=== PATIENT | female | born 1935 | race Caucasian/White ===

== ENCOUNTER 2017-05-11 16:49 | Observation (INO) | payer MEDICARE ==
[~2017-05-11] VITALS: Ht 154.9 cm; Wt 86.5 kg
[~2017-05-11 16:49] MED LIST: LEVO.1 PO; OXYBXL10 PO; PRED10 PO
[2017-05-11] MEDS ORDERED: SODIUM CHLOR 0.9% 1000 ML INJ 1,000 ML IV SCH (17:09)
[2017-05-11 17:14] VITALS: BP 180/82; PULSE 82; RESP 17; TEMP 97.6; O2SAT 91
[2017-05-11] MEDS ORDERED: ONDANSETRON HCL 4 MG/2 ML VIAL IVP ONE (17:15)
[2017-05-11] MEDS ORDERED: SODIUM CHLORIDE 0.9% FLUSH 10 ML FLUSH IV FLUSH PRN ×2 (17:15→20:15)
[2017-05-11 17:17] VITALS: BP 180/82; PULSE 72; RESP 19; O2SAT 88; O2SAT 89
[2017-05-11] MEDS ORDERED: PRED1 PO (17:26)
[2017-05-11] MEDS ORDERED: LEVO.1 PO (17:26)
[2017-05-11] MEDS ORDERED: OXYB5TAB8 PO (17:26)
[2017-05-11] MEDS ORDERED: SODI1TAB PO (17:26)
[2017-05-11] MEDS ORDERED: CYAN100025 PO (17:27)
--- NOTE | 2017-05-11 17:31 | PD ---
HPI Chief Complaint: Chest Pain Time Seen by Provider: 17:07 Travel History International Travel<30 days: No Contact w/Intl Traveler<30days: No Traveled to known affect area: No History of Present Illness HPI The patient is 82 years old and complains of chest pain and vomiting after eating dinner in a restaurant. Location is retrosternal. She denies loss of consciousness. Lightheadedness did occur. Onset sudden. Symptoms have more or less resolved over trace persistent retrosternal. The patient reports feeling herself over the past few days. There have been no new or different medications. Bowel and bladder habits have been normal. The patient believes she may have eaten food too quickly and potentially leading to the nausea vomiting and chest pain. [facility] Past Medical History Cancer: No Diabetes: No Glaucoma: No Hepatitis: No Hiatal Hernia: No Hypertension: Yes (YEARS AGO) Thyroid Disease: Yes Past Surgical History Ear Surgery: Yes (BILAT MASTOIDECTOMY) Oral Surgery: Yes (TONSILS) Social History Alcohol Use: Yes (RARE) Tobacco Use: No Allergies-Medications (Allergen,Severity, Reaction): Coded Allergies: Sulfa (Sulfonamide Antibiotics) (Unverified Allergy, Severe, 05/11/17) Reported Meds & Prescriptions Reported Meds & Active Scripts Active Reported B-12 (Cyanocobalamin) 1,000 Mcg Subl 1,000 Mcg PO DAILY Prednisone 1 Mg Tab 2 Mg PO HS Sodium Chloride 1 Gram Tab 1 Gm PO DAILY Ditropan (Oxybutynin Chloride) 5 Mg Tab 10 Mg PO DAILY Synthroid (Levothyroxine Sodium) 100 Mcg Tab 100 Mcg PO DAILY Review of Systems Except as stated in HPI: all other systems reviewed are Neg Physical Exam Narrative GENERAL: The patient is 82 years old male distress present SKIN: Warm and dry. HEAD: Atraumatic. Normocephalic. EYES: Pupils equal and round. No scleral icterus. No injection or drainage. ENT: No nasal bleeding or discharge. Mucous membranes pink and moist. NECK: Trachea midline. No JVD. CARDIOVASCULAR: Rhythm is somewhat irregular. The rate about 90. RESPIRATORY: No accessory muscle use. Clear to auscultation. Breath sounds equal bilaterally. GASTROINTESTINAL: Abdomen soft, non-tender, nondistended. Hepatic and splenic margins not palpable. MUSCULOSKELETAL: Extremities without clubbing, cyanosis, or edema. No obvious deformities. NEUROLOGICAL: Awake and alert. No obvious cranial nerve deficits. Motor grossly within normal limits. Five out of 5 muscle strength in the arms and legs. Normal speech. PSYCHIATRIC: Appropriate mood and affect; insight and judgment normal. Data Data Last Documented VS Vital Signs Date Time Temp Pulse Resp B/P (MAP) Pulse Ox O2 Delivery O2 Flow Rate FiO2 05/11/17 18:15 68 20 175/83 (113) 98 Nasal Cannula 3.00 05/11/17 17:14 97.6 Orders Orders Complete Blood Count With Diff (05/11/17 17:09) Comprehensive Metabolic Panel (05/11/17 17:09) Lipase (05/11/17 17:09) Prothrombin Time / Inr (Pt) (05/11/17 17:09) Act Partial Throm Time (Ptt) (05/11/17 17:09) Urinalysis - C+S If Indicated (05/11/17 17:09) Iv Access Insert/Monitor (05/11/17 17:09) Ecg Monitoring (05/11/17 17:09) Oximetry (05/11/17 17:09) Ondansetron Inj (Zofran Inj) (05/11/17 17:15) Sodium Chlor 0.9% 1000 Ml Inj (Ns 1000 M (05/11/17 17:09) Sodium Chloride 0.9% Flush (Ns Flush) (05/11/17 17:15) Electrocardiogram (05/11/17 17:09) Troponin I (05/11/17 17:09) Chest, Single Ap (05/11/17 ) Labs Laboratory Tests Test 05/11/17 17:30 05/11/17 18:10 White Blood Count 10.0 TH/MM3 Red Blood Count 4.50 MIL/MM3 Hemoglobin 13.2 GM/DL Hematocrit 39.2 % Mean Corpuscular Volume 87.1 FL Mean Corpuscular Hemoglobin 29.4 PG Mean Corpuscular Hemoglobin Concent 33.8 % Red Cell Distribution Width 14.9 % Platelet Count 176 TH/MM3 Mean Platelet Volume 8.7 FL Neutrophils (%) (Auto) 70.0 % Lymphocytes (%) (Auto) 20.4 % Monocytes (%) (Auto) 7.3 % Eosinophils (%) (Auto) 1.6 % Basophils (%) (Auto) 0.7 % Neutrophils # (Auto) 7.0 TH/MM3 Lymphocytes # (Auto) 2.0 TH/MM3 Monocytes # (Auto) 0.7 TH/MM3 Eosinophils # (Auto) 0.2 TH/MM3 Basophils # (Auto) 0.1 TH/MM3 CBC Comment DIFF FINAL Differential Comment Prothrombin Time 10.7 SEC Prothromb Time International Ratio 1.1 RATIO Activated Partial Thromboplast Time 21.7 SEC Blood Urea Nitrogen 10 MG/DL Creatinine 0.76 MG/DL Random Glucose 142 MG/DL Total Protein 6.2 GM/DL Albumin 3.2 GM/DL Calcium Level 8.0 MG/DL Alkaline Phosphatase 54 U/L Aspartate Amino Transf (AST/SGOT) 15 U/L Alanine Aminotransferase (ALT/SGPT) 16 U/L Total Bilirubin 0.6 MG/DL Sodium Level 143 MEQ/L Potassium Level 3.2 MEQ/L Chloride Level 110 MEQ/L Carbon Dioxide Level 24.5 MEQ/L Anion Gap 9 MEQ/L Estimat Glomerular Filtration Rate 73 ML/MIN Troponin I LESS THAN 0.02 NG/ML Lipase 86 U/L Urine Color YELLOW Urine Turbidity HAZY Urine pH 7.0 Urine Specific [place] 1.012 Urine Protein NEG mg/dL Urine Glucose (UA) TRACE mg/dL Urine Ketones 10 mg/dL Urine Occult Blood NEG Urine Nitrite NEG Urine Bilirubin NEG Urine Urobilinogen LESS THAN 2.0 MG/DL Urine Leukocyte Esterase TRACE Urine RBC 1 /hpf Urine WBC 2 /hpf Urine Squamous Epithelial Cells 2 /hpf Urine Amorphous Sediment RARE Urine Bacteria RARE /hpf Microscopic Urinalysis Comment CULT NOT INDICATED MDM Medical Decision Making Medical Screen Exam Complete: Yes Emergency Medical Condition: Yes Medical Record Reviewed: Yes Differential Diagnosis Arrhythmia, coronary artery disease, UTI Narrative Course CBC & BMP Diagram 05/11/17 17:30 Total Protein 6.2 L, Albumin 3.2 L, Calcium Level 8.0 L, Alkaline Phosphatase 54 , Aspartate Amino Transf (AST/SGOT) 15, Alanine Aminotransferase (ALT/SGPT) 16, Total Bilirubin 0.6 Past medical history includes hypertension. The workup reveals a normal CBC essentially unremarkable chemistries including a negative troponin. The urinalysis shows no UTI in the coags are normal. The patient has an EKG with frequent PVCs however the morphology overall appears essentially stable. The patient at after reassessment attempted to ambulate around upon however became dizzy and was assisted back to bed. Admission for monitoring is considered appropriate given the age and the concern for arrhythmia associated with today's events. Patient received Zofran IV fluids and reported feeling somewhat better. Diagnosis Primary Impression: Nausea & vomiting Additional Impression: Chest pain Bo Camacho MD May 11, 2017 17:31
[2017-05-11 17:56] LABS: BASOPHIL # 0.1 TH/MM3 (0-0.2); BASOPHIL % 0.7 % (0.0-2.0); EOSINOPHIL # 0.2 TH/MM3 (0-0.4); EOSINOPHIL % 1.6 % (0.0-4.0); HEMATOCRIT 39.2 % (35.0-46.0); HEMOGLOBIN 13.2 GM/DL (11.6-15.3); LYMPH % 20.4 % (9.0-44.0); MEAN CELL VOLUME 87.1 FL (80.0-100.0); MEAN CORPUSCULAR HEMOGLOBIN 29.4 PG (27.0-34.0); MEAN CORPUSCULAR HGB CONC 33.8 % (32.0-36.0); MEAN PLATELET VOLUME 8.7 FL (7.0-11.0); MONO % 7.3 % (0.0-8.0); MONOCYTE # 0.7 TH/MM3 (0-0.9); PLATELET COUNT 176 TH/MM3 (150-450); RED CELL DISTRIBUTION WIDTH 14.9 % (11.6-17.2)
[2017-05-11 18:00] VITALS: BP 181/82; PULSE 72; RESP 17; O2SAT 97
--- NOTE | 2017-05-11 18:03 | RADRPT ---
EXAM DATE/TIME: 05/11/2017 17:41 [place] COMPARISON: No previous studies available for comparison. INDICATIONS : Syncopal episode. MEDICAL HISTORY : Hypertension. SURGICAL HISTORY : None. ENCOUNTER: Initial ACUITY: 1 day PAIN SCORE: Non-responsive. LOCATION: Bilateral chest FINDINGS: Lung volumes are symmetrically diminished. There is mild vascular congestion and interstitial promine nce. No evidence of lobar consolidation or significant effusion. Heart size appears grossly normal. T here are arthritic changes in the spine and left shoulder. CONCLUSION: Mild diffuse interstitial prominence. Armani Sorensen MD on May 11, 2017 at 17:59 Board Certified Radiologist. This report was verified electronically.
[2017-05-11 18:08] LABS: INTERNATIONAL NORMALIZED RATIO 1.1 RATIO; PROTHROMBIN TIME - PATIENT 10.7 SEC (9.8-11.6)
[2017-05-11 18:15] VITALS: BP 175/83; PULSE 68; RESP 20; O2SAT 98
[2017-05-11 18:15] LABS: ALBUMIN 3.2 GM/DL (3.4-5.0); AST (GOT) 15 U/L (15-37); BICARBONATE 24.5 MEQ/L (21.0-32.0); BLOOD UREA NITROGEN 10 MG/DL (7-18); CHLORIDE 110 MEQ/L (98-107); CREATININE 0.76 MG/DL (0.50-1.00); GLOMERULAR FILTRATION RATE 73 ML/MIN (>89); GLUCOSE,RANDOM 142 MG/DL (74-106); LIPASE 86 U/L (73-393); SODIUM (NA) 143 MEQ/L (136-145)
[2017-05-11 18:19] LABS: ALKALINE PHOSPHATASE 54 U/L (45-117); ALT (GPT) 16 U/L (10-53); TOTAL BILIRUBIN ADULT 0.6 MG/DL (0.2-1.0); TOTAL PROTEIN 6.2 GM/DL (6.4-8.2); TROPONIN I LESS THAN 0.02 NG/ML (0.02-0.05)
[2017-05-11 18:26] LABS: AMORPHOUS SEDIMENT, URINE RARE; BACTERIA, URINE RARE /hpf; BILIRUBIN, URINE NEG (NEG); BLOOD, URINE NEG (NEG); GLUCOSE,URINE TRACE mg/dL (NEG); KETONE, URINE 10 mg/dL (NEG); NITRITE,URINE NEG (NEG); SQUAMOUS EPITHELIAL CELL URINE 2 /hpf (0-5); URINE COLOR YELLOW (YELLW/STRAW); URINE LEUKOCYTE ESTERASE TRACE (NEG)
--- NOTE | 2017-05-11 19:36 | EKG ---
Date Performed: 05/11/2017 Time Performed: 17:14:11 PTAGE: 82 years EKG: Sinus rhythm WITH OCCASIONAL SUPRAVENTRICULAR PREMATURE COMPLEXES MARKED LEFT AXIS DEVIATION PATTERN CONSISTENT W ITH PULMONARY DISEASE NONSPECIFIC ST & T-WAVE ABNORMALITY ABNORMAL ECG Compared to prior electrocardi ogram, Premature atrial contraction are now present PREVIOUS TRACING : 03/18/2009 12.45 DOCTOR: Chacho Hood Interpretating Date/Time 05/11/2017 19:34:52
[2017-05-11] MEDS ORDERED: NALOXONE HCL 0.4 MG/ML AMP IV PUSH PRN (20:15)
[2017-05-11 20:37] VITALS: BP 133/66; PULSE 72; RESP 17; TEMP 97.6; O2SAT 96
[2017-05-11] MEDS ORDERED: FAMOTIDINE 20 MG TAB PO ONE (21:45)
[2017-05-11] MEDS: SODIUM CHLORIDE 0.9% FLUSH 10 ML FLUSH IV FLUSH SCH (22:26)
[2017-05-11 22:35] VITALS: PULSE 74
[2017-05-11 23:56] LABS: TROPONIN I LESS THAN 0.02 NG/ML (0.02-0.05)
[2017-05-12] VITALS (8 sets, daily range): BP systolic 138–187; BP diastolic 74–84; PULSE 66–93; RESP 16–18; TEMP 97.7–98.3; O2SAT 94–96
--- NOTE | 2017-05-12 03:06 | HHI.HP ---
HPI Service [facility] Primary Care Physician Unknown Admission Diagnosis N/V, Chest Pain Diagnoses: Travel History International Travel<30 Days: No Contact w/Intl Traveler <30 Da: No Traveled to Known Affected Are: No History of Present Illness hx from patient, ER physician was at [employer] eating celeberating birthday all of a sudden felt somehting odd told sister she felt funny and sister asked her if she wants to go to er , adn called 911 then she vomited while waiting for them she vomited severeal times before she got to er no black or red color "more or less the same it went down, the way it came up"--- meaning all food no abdominal pain was still a little nauseous, got medicine, felt better was supposed to be discharged, but got unsteady on ambulation and er doc advised to stay denies every single symptoms denies chest pains to me- but then stated she had a little when she was vomiting Review of Systems Except as stated in HPI: all other systems reviewed are Neg Past Family Social History Past Medical History white coat syndrome had prior syncopal episode- was seen by Dr Valiente then- all negative cardiac workup, and was started on salt pills salt pills now, only once a day, used to be on 4 x aday hypothyroidism at 14yo polio Arthritis Past Surgical History 14 months old, mastoidectomy bilateral tonsilectomy tendon at back of leg removed- for polio- at 14yo 1982- 3/4 of thyroidectomy and goiter cholecystectomy Allergies: Coded Allergies: Sulfa (Sulfonamide Antibiotics) (Unverified Allergy, Severe, 05/11/17) Family History sister- cancer, at base of spine another sister- part of lung removed from cancer Social History used to smoke during teenager no etoh, no drugs lives on her own now , no longer driving Physical Exam Vital Signs Vital Signs Date Time Temp Pulse Resp B/P (MAP) Pulse Ox O2 Delivery O2 Flow Rate FiO2 05/12/17 00:19 97.7 70 17 181/79 (113) 95 05/11/17 20:37 97.6 72 17 133/66 (88) 96 1/18/18 18:15 68 20 175/83 (113) 98 Nasal Cannula 3.00 05/11/17 18:00 72 17 181/82 (115) 97 Nasal Cannula 3.00 05/11/17 17:17 88 Room Air 05/11/17 17:17 72 19 180/82 (114) 89 Nasal Cannula 2.00 05/11/17 17:17 80 05/11/17 17:14 97.6 82 17 180/82 (114) 91 Physical Exam GENERAL: This is a well-nourished, well-developed patient, in no apparent distress. SKIN: No rashes, ecchymoses or lesions. Cool and dry. HEAD: Atraumatic. Normocephalic. No temporal or scalp tenderness. EYES: No scleral icterus. No injection or drainage. ENT: Nose without bleeding, purulent drainage or septal hematoma. Airway patent. NECK: Trachea midline. No JVD . Supple, nontender, no meningeal signs. CARDIOVASCULAR: Regular rate and rhythm without murmurs, gallops, or rubs. RESPIRATORY: Clear to auscultation. Breath sounds equal bilaterally. No wheezes , rales, or rhonchi. GASTROINTESTINAL: Abdomen soft, non-tender, nondistended. . No guarding. MUSCULOSKELETAL: Extremities without clubbing, cyanosis, or edema. No calf tenderness. bilateral wrist with mild soft tissue swelling- from prior falls/ bruising NEUROLOGICAL: Awake and alert. Motor and sensory grossly within normal limits. Normal speech. Laboratory Laboratory Tests Test 05/11/17 17:30 05/11/17 18:10 05/11/17 23:15 White Blood Count 10.0 Red Blood Count 4.50 Hemoglobin 13.2 Hematocrit 39.2 Mean Corpuscular Volume 87.1 Mean Corpuscular Hemoglobin 29.4 Mean Corpuscular Hemoglobin Concent 33.8 Red Cell Distribution Width 14.9 Platelet Count 176 Mean Platelet Volume 8.7 Neutrophils (%) (Auto) 70.0 Lymphocytes (%) (Auto) 20.4 Monocytes (%) (Auto) 7.3 Eosinophils (%) (Auto) 1.6 Basophils (%) (Auto) 0.7 Neutrophils # (Auto) 7.0 Lymphocytes # (Auto) 2.0 Monocytes # (Auto) 0.7 Eosinophils # (Auto) 0.2 Basophils # (Auto) 0.1 CBC Comment DIFF FINAL Differential Comment Prothrombin Time 10.7 Prothromb Time International Ratio 1.1 Activated Partial Thromboplast Time 21.7 Blood Urea Nitrogen 10 Creatinine 0.76 Random Glucose 142 Total Protein 6.2 Albumin 3.2 Calcium Level 8.0 Alkaline Phosphatase 54 Aspartate Amino Transf (AST/SGOT) 15 Alanine Aminotransferase (ALT/SGPT) 16 Total Bilirubin 0.6 Sodium Level 143 Potassium Level 3.2 Chloride Level 110 Carbon Dioxide Level 24.5 Anion Gap 9 Estimat Glomerular Filtration Rate 73 Troponin I LESS THAN 0.02 LESS THAN 0.02 Lipase 86 Urine Color YELLOW Urine Turbidity HAZY Urine pH 7.0 Urine Specific [place] 1.012 Urine Protein NEG Urine Glucose (UA) TRACE Urine Ketones 10 Urine Occult Blood NEG Urine Nitrite NEG Urine Bilirubin NEG Urine Urobilinogen LESS THAN 2.0 Urine Leukocyte Esterase TRACE Urine RBC 1 Urine WBC 2 Urine Squamous Epithelial Cells 2 Urine Amorphous Sediment RARE Urine Bacteria RARE Microscopic Urinalysis Comment CULT NOT INDICATED Total Creatine Kinase 148 Result Diagram: 05/11/17 1730 05/11/17 1730 Imaging Last 48 hours Impressions Chest X-Ray 05/11/17 0000 Signed Impressions: Service Date/Time: April 17:41 - CONCLUSION: Mild diffuse interstitial prominence. Armani Sorensen MD Caprini VTE Risk Assessment Caprini VTE Risk Assessment: Mod/High Risk (score >= 2) Caprini Risk Assessment Model Point Value = 1 Point Value = 2 Point Value = 3 Point Value = 5 Age 41-60 Minor surgery BMI > 25 kg/m2 Swollen legs Varicose veins or History of unexplained or recurrent spontaneous Oral contraceptives or hormone replacement Sepsis (< 1 month) Serious lung disease, including pneumonia (< 1 month) Abnormal pulmonary function Acute myocardial infarction Congestive heart failure (< 1 month) History of inflammatory bowel disease Medical patient at bed rest Age 61-74 Arthroscopic surgery Major open surgery (> 45 min) Laparoscopic surgery (> 45 min) Malignancy Confined to bed (> 72 hours) Immobilizing plaster cast Central venous access Age >= 75 History of VTE Family history of VTE Factor V Leiden Prothrombin [id number] Lupus anticoagulant Anticardiolipin antibodies Elevated serum homocysteine Heparin-induced thrombocytopenia Other congenital or acquired thrombophilia Stroke (< 1 month) Elective arthroplasty Hip, pelvis, or leg fracture Acute spinal cord injury (< 1 month) Prophylaxis Regimen Total Risk Factor Score Risk Level Prophylaxis Regimen 0-1 Low Early ambulation 2 Moderate Order ONE of the following: *Sequential Compression Device (SCD) *Heparin 5000 units SQ BID 3-4 Higher Order ONE of the following medications: *Heparin 5000 units SQ TID *Enoxaparin/Lovenox 40 mg SQ daily (WT < 150 kg, CrCl > 30 mL/min) *Enoxaparin/Lovenox 30 mg SQ daily (WT < 150 kg, CrCl > 10-29 mL/min) *Enoxaparin/Lovenox 30 mg SQ BID (WT < 150 kg, CrCl > 30 mL/min) AND/OR *Sequential Compression Device (SCD) 5 or more Highest Order ONE of the following medications: *Heparin 5000 units SQ TID (Preferred with Epidurals) *Enoxaparin/Lovenox 40 mg SQ daily (WT < 150 kg, CrCl > 30 mL/min) *Enoxaparin/Lovenox 30 mg SQ daily (WT < 150 kg, CrCl > 10-29 mL/min) *Enoxaparin/Lovenox 30 mg SQ BID (WT < 150 kg, CrCl > 30 mL/min) AND *Sequential Compression Device (SCD) Assessment and Plan Assessment and Plan Impression: Gastritis Generalized weakness from GI loss from vomiting Bilateral lower extremity redness. Stated chronic. Somewhat warm and red. At this point, I do not believe that she needs any treatment with antibiotics. Chest pain. Nonspecific. Likely secondary to gastritis. We will rule out ACS with enzymes and EKGs. white coat syndrome Chronic hyponatremia. Had prior syncopal episode- was seen by Dr Valiente then- all negative cardiac workup, and was started on salt pills salt pills now, only once a day, used to be on 4 x aday hypothyroidism at 14yo polio Arthritis Plan: Trial of diet IV hydration. PT evaluation. Ambulate patient in the room. If patient is able to tolerated diet and able to ambulate without much assistance, she will likely be discharged home in a.m. Resume home medications. DVT prophylaxis with ambulation. GI prophylaxis on Pepcid. Discussed Condition With patient, ER physician, her nurse Kulwant Calvo MD May 12, 2017 03:06
[2017-05-12 06:09] LABS: AUTOMATED NEUTROPHIL # 7.3 TH/MM3 (1.8-7.7); BASOPHIL # 0.1 TH/MM3 (0-0.2); BASOPHIL % 0.7 % (0.0-2.0); EOSINOPHIL # 0.1 TH/MM3 (0-0.4); EOSINOPHIL % 0.5 % (0.0-4.0); HEMATOCRIT 38.6 % (35.0-46.0); HEMOGLOBIN 13.1 GM/DL (11.6-15.3); LYMPH % 13.9 % (9.0-44.0); LYMPHOCYTE # 1.3 TH/MM3 (1.0-4.8); MEAN CELL VOLUME 87.6 FL (80.0-100.0); MEAN CORPUSCULAR HEMOGLOBIN 29.7 PG (27.0-34.0); MEAN CORPUSCULAR HGB CONC 33.9 % (32.0-36.0); MEAN PLATELET VOLUME 8.8 FL (7.0-11.0); MONO % 9.1 % (0.0-8.0); MONOCYTE # 0.9 TH/MM3 (0-0.9); NEUT % 75.8 % (16.0-70.0); PLATELET COUNT 169 TH/MM3 (150-450); RED BLOOD COUNT 4.41 MIL/MM3 (4.00-5.30); RED CELL DISTRIBUTION WIDTH 14.8 % (11.6-17.2); WHITE BLOOD COUNT 9.6 TH/MM3 (4.0-11.0)
[2017-05-12 06:39] LABS: BICARBONATE 26.1 MEQ/L (21.0-32.0); CALCIUM 8.8 MG/DL (8.5-10.1); CREATININE 0.76 MG/DL (0.50-1.00)
[2017-05-12 06:42] LABS: TROPONIN I LESS THAN 0.02 NG/ML (0.02-0.05)
[2017-05-12] MEDS ORDERED: LEVOTHYROXINE SODIUM 100 MCG TAB PO SCH (07:00)
--- NOTE | 2017-05-12 08:00 | EKG ---
Date Performed: 05/12/2017 Time Performed: 05:09:45 PTAGE: 82 years EKG: Baseline artifact present Sinus rhythm WITH OCCASIONAL SUPRAVENTRICULAR PREMATURE COMPLEXES BORDERLINE LEFT AXIS DEVIATION NONSPECIFIC T-WA VE ABNORMALITY BORDERLINE ECG Compared to prior electrocardiogram, Premature atrial contraction are n ow present PREVIOUS TRACING : 05/12/2017 00.19 DOCTOR: Chacho Hood Interpretating Date/Time 05/12/2017 07:59:04
--- NOTE | 2017-05-12 08:07 | EKG ---
Date Performed: 05/12/2017 Time Performed: 00:19:29 PTAGE: 82 years EKG: Baseline artifact present Sinus rhythm WITH SINUS ARRHYTHMIA MARKED LEFT AXIS DEVIATION PATTERN CONSISTENT WITH PULMONARY DISEASE NONSPECIF IC T-WAVE ABNORMALITY ABNORMAL ECG No significant change from prior electrocardiogram. PREVIOUS TRACING : 05/11/2017 17.14 DOCTOR: Chacho Hood Interpretating Date/Time 05/12/2017 08:05:17
[2017-05-12] MEDS ORDERED: OXYBUTYNIN CHLORIDE 5 MG TAB PO SCH (09:00)
[2017-05-12] MEDS ORDERED: SODIUM CHLORIDE 1 GRAM TAB PO SCH (09:00)
[2017-05-12] MEDS ORDERED: FAMOTIDINE 20 MG TAB PO SCH ×2 (09:00)
[2017-05-12] MEDS: SODIUM CHLORIDE 0.9% FLUSH 10 ML FLUSH IV FLUSH SCH (09:38)
[2017-05-12] MEDS ORDERED: AMLO5 PO (10:23)
--- NOTE | 2017-05-12 10:26 | HHI.DCPOC ---
Discharge Care Plan Diagnosis: (1) Gastritis (2) Hypertension (3) Chest pain (4) Nausea & vomiting Goals to Promote Your Health * To prevent worsening of your condition and complications * To maintain your health at the optimal level Directions to Meet Your Goals Take your medications as prescribed Follow your dietary instruction Follow activity as directed Keep your appointments as scheduled Take your immunizations and boosters as scheduled If your symptoms worsen call your PCP, if no PCP go to Urgent Care Center or Emergency Room Smoking is Dangerous to Your Health. Avoid second hand smoke Call the 24-hour hour crisis hotline for domestic abuse at [facility] May 12, 2017 10:26
[2017-05-12] MEDS ORDERED: amLODIPine BESYLATE 5 MG TAB PO ONE (10:45)
--- NOTE | 2017-05-12 12:47 | HHI.PR ---
Subjective Remarks Follow-up on patient with vomiting, likely gastritis. Patient seen and examined. Patient states she feels very well. She has returned to her baseline. She is hoping to be discharged today. Patient states that she lives alone at home and ambulates well with a walker. She was able to tolerate breakfast without any difficulties. She denies any nausea, vomiting or abdominal pain. She denies any fever or chills. She denies any chest pain or shortness of breath. She denies any hematuria, dysuria, diarrhea or dark/bloody /tarry stools. Objective Vitals Vital Signs Date Time Temp Pulse Resp B/P (MAP) Pulse Ox O2 Delivery O2 Flow Rate FiO2 05/12/17 11:51 98.1 71 18 138/84 (102) 94 05/12/17 07:26 98.1 77 18 187/79 (115) 94 05/12/17 05:12 98.3 71 16 172/74 (106) 96 05/12/17 04:10 66 05/12/17 00:30 72 05/12/17 00:19 97.7 70 17 181/79 (113) 95 05/11/17 22:35 74 05/11/17 20:37 97.6 72 17 133/66 (88) 96 05/11/17 18:15 68 20 175/83 (113) 98 Nasal Cannula 3.00 05/11/17 18:00 72 17 181/82 (115) 97 Nasal Cannula 3.00 05/11/17 17:17 88 Room Air 05/11/17 17:17 72 19 180/82 (114) 89 Nasal Cannula 2.00 05/11/17 17:17 80 05/11/17 17:14 97.6 82 17 180/82 (114) 91 I/O 05/11/17 05/11/17 05/11/17 05/12/17 05/12/17 05/12/17 07:00 15:00 23:00 07:00 15:00 23:00 Intake Total 1000 ml Balance 1000 ml Intake IV Total 1000 ml Result Diagram: 05/12/17 0451 05/12/17 0451 Imaging Last Impressions Chest X-Ray 05/11/17 0000 Signed Impressions: Service Date/Time: April 17:41 - CONCLUSION: Mild diffuse interstitial prominence. Armani Sorensen MD Objective Remarks GENERAL: This is a well-nourished, well-developed elderly female patient, in no apparent distress. Awake and alert. SKIN: Cool and dry. Mild erythema noted bilateral lower extremities over the lower legs and ankles, chronic. HEAD: Atraumatic. Normocephalic. EYES: EOMI. No scleral icterus. No injection or drainage. ENT: Nose without bleeding or purulent drainage. Airway patent. MMM. NECK: Trachea midline. CARDIOVASCULAR: Regular rate and rhythm without murmurs, gallops, or rubs. RESPIRATORY: Clear to auscultation. Breath sounds equal bilaterally. No wheezes , rales, or rhonchi. GASTROINTESTINAL: Abdomen soft, non-tender, nondistended. No guarding. (+)BSx4 quadrants. MUSCULOSKELETAL: Extremities without clubbing or cyanosis. (+)mild diffuse nonpitting edema BLEs. No calf tenderness. bilateral wrist with mild soft tissue swelling- from prior falls/bruising NEUROLOGICAL: Awake and alert. Motor and sensory grossly within normal limits. No focal neurologic findings appreciated. Normal speech. Medications and IVs Current Medications Medications (Trade) Dose Ordered Sig/Paulo Route Start Time Stop Time Status Last Admin (NS Flush) 2 ml UNSCH PRN IV FLUSH 05/11/17 20:15 (NS Flush) 2 ml BID IV FLUSH 05/11/17 21:00 05/12/17 09:38 (Narcan Inj) 0.4 mg UNSCH PRN IV PUSH 05/11/17 20:15 (Pepcid) 20 mg Q12HR PO 05/12/17 09:00 05/12/17 09:38 (Synthroid) 100 mcg DAILY@0700 PO 05/12/17 07:00 (Ditropan) 10 mg DAILY PO 05/12/17 09:00 05/12/17 09:38 (Deltasone) 2 mg HS PO 05/12/17 21:00 (Sodium Chloride) 1 gm DAILY PO 05/12/17 09:00 05/12/17 11:55 (Norvasc) 5 mg DAILY PO 05/13/17 09:00 A/P Assessment and Plan Vomiting suspect secondary to gastritis - No recurrence of vomiting since admission - tolerating diet - d/c IVF Generalized weakness - secondary to GI loss from vomiting - evaluated by PT who recommends outpatient PT Hyponatremia, chronic - on salt tablets - sodium WNL Hypertension Hx of white coat syndrome - blood pressure has been persistently elevated 180s/80s - start Norvasc 5mg daily - monitor BP and adjust treatment accordingly DVT prophylaxis - ambulate Discharge patient to home Condition on discharge: Improved Heart healthy Diet as tolerated Ad Mary activity/ambulate with walker - outpatient PT 3x wk x 4 wk Rx written: Norvasc 5mg po daily Follow-up with primary care physician in one week [facility] May 12, 2017 12:47
[2017-05-12] MEDS ORDERED: predniSONE 1 MG TAB PO SCH (21:00)
[2017-05-13] MEDS ORDERED: amLODIPine BESYLATE 5 MG TAB PO SCH (09:00)
== END 2017-05-12 14:52 | disposition home or self-care (01) ==
LOC: NEPC 16:49 → NEDA 19:24 → NEPGCP 20:17
PROVIDERS: ADMIT Hospitalist; ATTEND Hospitalist
DX: R07.9 Chest pain, unspecified (principal); I10 Essential (primary) hypertension; K29.70 Gastritis, unspecified, without bleeding; E03.9 Hypothyroidism, unspecified; E87.1 Hypo-osmolality and hyponatremia; I49.3 Ventricular premature depolarization; M19.90 Unspecified osteoarthritis, unspecified site; Z87.891 Personal history of nicotine dependence
CPT/HCPCS: 71045; 80048; 80053; 81001; 82550; 83690; 84484; 85025; 85610; 85730; 93005; 96361; 96374; 97162; 99285; G0378; G8988; G8989; J2405; J7030